=== PATIENT | female | born 1965 | race Caucasian/White ===

== ENCOUNTER 2017-10-06 22:03 | Inpatient (IN) ==
[2017-10-06] MEDS ORDERED: PROCHLORPERAZINE 10 MG/2 ML INJECTION IVP ONE (22:59)
[2017-10-06] MEDS ORDERED: KETOROLAC 30 MG/ML INJECTION IVP ONE (22:59)
[2017-10-06] MEDS ORDERED: NS 1,000 ML IV ONE (22:59)
--- NOTE | 2017-10-06 23:04 | Emergency Department Report ---
Female Urogenital HPI - General Chief complaint: Urogenital-Female Stated complaint: UTI, backpain/fever Time Seen by Provider: 10/06/17 22:51 Source: patient Mode of arrival: ambulatory Limitations: no limitations - History of Present Illness HPI Narrative: 4 days ago the patient began having fevers, abdominal pain, right flank pain and dysuria. Patient was found to have a urinary tract infection, placed on Levaquin and Zofran, but her symptoms have not improved. Patient's fever has now gotten up to 103 at home, and patient continues to be tachycardic. She was instructed by her primary care physician, Dr. Simons to come to the ER for evaluation. Patient has also had similar symptoms of flank pain like this with her kidney stones, but has never had a urinary tract infection with a kidney stone. In reviewing the patient's past medical records and studies, she's never passed a kidney stone, but did have a CT scan that showed mild hydroureter but no evidence of kidney stones. - Related Data Home Medications Medication Instructions Recorded Confirmed Insulin Aspart [NovoLOG] 25 unit SQ TID #0 vial 12/15/15 10/06/17 Insulin Glargine,Hum.rec.anlog 30 unit SQ HS #0 vial 12/15/15 10/06/17 [Lantus] Atorvastatin [Lipitor] 1 tab PO HS 10/06/17 10/06/17 Lisinopril [Zestril] 20 mg PO DAILY 10/06/17 10/06/17 Metformin [Glucophage] 500 mg PO BID 10/06/17 10/06/17 Allergies Allergy/AdvReac Type Severity Reaction Status Date / Time ceftriaxone Allergy Severe HIVES AND Verified 12/15/15 07:13 RESPIRATORY FAILURE Sulfa (Sulfonamide Allergy Intermediate HIVES Verified 12/15/15 07:13 Antibiotics) amoxicillin Allergy Mild Verified 12/15/15 07:13 cefaclor Allergy Mild Verified 12/15/15 07:13 clavulanic acid Allergy Mild Verified 12/15/15 07:13 morphine Allergy Unknown Verified 12/15/15 07:13 Review of Systems All systems: reviewed and negative except as stated PFSH Patient Stated Medical History Hypertension Yes Diabetes Mellitus Type 1 Yes Hx Incontinence Yes Now No Kidney stones Urine or tract infections hypothyroidism depression, suicide attempt Surgical History: appendix,. neck. ,. tubal ligation - Social History Smoking status: Never smoker Substance use type: does not use Alcohol intake frequency: does not drink Physical Exam - Limitations Limitations: no limitations - General General appearance: alert, in distress (patient appears in moderate distress secondary to pain) - Normal Exams: Head:: Normocephalic without trauma Eyes:: Pupils are PERRLA w/ EOMI, No scleral icterus, irritation, or foreign bodies noted ENMT:: No facial trauma, nasal exudates, pharyngeal erythema, or exudates are noted Neck:: Full range of motion, without adenopathy, JVD, bruits or thyromegaly Chest/Respirations:: Clear all mccrary, with good airflow, and symmetry bilaterally Cardiovascular:: Regular rate and rhythm, without murmur or gallop, Pulses 2+ all extremities, capillary refill, <2 seconds all extremities Lymphatic:: No lymphadenopathy, or lymphedema noted Musculoskeletal:: No tenderness, or deformity noted, good range of motion, all extremities Integumentary:: No rashes, hives, or bruising noted, hair and nails, without abnormality Neurological:: Patient is alert, and oriented, cranial nerves, motor/sensory/ cerebellar, exams w/o gross deficits, to observation Psychiatric:: Patient exhibits, appropriate attention, emotion and affect - Abdominal Exam Abdominal exam: Present: soft, tenderness (her diffuse periumbilical tenderness , with significant right flank and right CVA tenderness), guarding (right CVA only), normal bowel sounds. Absent: distention, Singh's sign, Rovsing's sign, tenderness at McBurney's Point, mass, bruit, pulsatile mass, hernia, scar Course Vital Signs Temperature 102.3 F H 10/06/17 22:16 Pulse Rate 115 H 10/06/17 22:16 Respiratory Rate 20 10/06/17 22:16 Blood Pressure 122/59 10/06/17 22:16 Pulse Oximetry 91 10/06/17 22:16 Temperature 98.8 F 10/07/17 00:45 Pulse Rate 112 H 10/07/17 00:45 Respiratory Rate 20 10/07/17 00:45 Blood Pressure 139/72 10/07/17 00:45 Pulse Oximetry 91 10/07/17 00:45 Urogenital-Female - MDM Narrative Medical decision making narrative: Patient is given Toradol and Compazine, with 1 L normal saline IV fluid bolus UA - 3+ glucose only CBC - white blood cells low at 2.4, no significant shift CMP/L - minor abnormalities, consistent with IDDM Lactate - elevated at 2.6 After 1 L normal saline patient continues to be tachycardic at 112, blood pressure 139/72, O2 saturations are normal but slightly low at 91% on room air. Patient states she would like to go home, but I urged her to stay since she appears to have urinary tract infection with pyelonephritis and possible sepsis. Patient is given a second liter of normal saline, aztreonam 1 g IV is ordered for the IV in addition. Case is discussed with Dr. Long, patient meets sepsis criteria, will be admitted for sepsis with UTI/pyelonephritis - Lab Data Result diagrams: 10/06/17 23:11 10/06/17 23:11 Lab Results 10/06/17 10/06/17 10/06/17 Range/Units 23:11 23:11 23:11 WBC 2.4 L (4.5-11.0) T/MM3 RBC 5.04 (4.00-5.20) M/MM3 Hgb 14.0 (12-16) GM/DL Hct 41.1 (36-46) % MCV 81.5 (80-100) UM3 MCH 27.8 (26-34) UUG MCHC 34.1 (31-37) GM/DL RDW Std Deviation 39.9 (36.9-50.2) FL Plt Count 126 L (130-400) T/MM3 MPV 11.1 (9.4-12.4) UM3 Immature Gran % (Auto) 0.0 (0.0-0.5) % Neut % (Auto) 49.8 (33-66) % Lymph % (Auto) 41.2 (23-45) % [place] % (Auto) 8.6 (0-9.0) % Eos % (Auto) 0.0 (0-4) % Baso % (Auto) 0.4 (0-2) % Neut # (Auto) 1.2 L (1.8-7.7) T/MM3 Lymph # (Auto) 1.0 (1-4.8) T/MM3 [place] # (Auto) 0.2 (0-0.8) T/MM3 Eos # (Auto) 0.0 (0-0.5) T/MM3 Baso # (Auto) 0.0 (0-0.2) T/MM3 Abs Immat Gran (auto) 0.00 (0.00-0.03) T/MM3 Turbidity < 20 (0-20) Sodium 140 (136-146) MEQ/L Potassium 3.5 L (3.6-5) MEQ/L Chloride 102 (98-107) MEQ/L Carbon Dioxide 23 (22-30) MEQ/L Anion Gap 15 (5-15) meq/L BUN 12.0 (7-17) MG/DL Creatinine 0.5 L (0.7-1.2) mg/dL Estimated Creat Clear 127 (>50) mL/min GFR Calculation 130 (>60) mL/min BUN/Creatinine Ratio 24 (6-26) RATIO Glucose 349 H (65-110) MG/DL Calculated Osmolality 283 H (261-280) MOSM/KG Calcium 9.3 (8.4-10.2) MG/DL Total Bilirubin 0.40 (0.20-1.30) MG/DL Conjugated Bilirubin 0.00 (0.00-0.30) mg/dL Unconjugated Bilirubin 0.50 (0.00-1.1) mg/dL Icterus Index < 2 (0-7) AST 47 H (14-36) U/L ALT 32 (1-35) U/L Alkaline Phosphatase 87 (38-126) U/L Total Protein 7.7 (6.3-8.2) g/dL Albumin 4.4 (3.5-5.0) g/dL Globulin 3.3 (2.4-3.6) G/DL Albumin/Globulin Ratio 1.3 (1.1-2.2) RATIO Lipase 256 (23-300) U/L Plasma Lactate 2.6 H (0.6-2.2) MMOL/L Specimen Hemolysis 32 H (0-25) Ur Collection Type Urine, void-cc/notcc Urine Color Yellow (YELLOW) Urine Clarity Clear Urine pH 5.5 (5.0-8.0) Ur Specific [place] 1.015 (1.015-1.025) Urine Protein Negative (NEGATIVE) Urine Glucose (UA) 3+ A (NEGATIVE) Urine Ketones Negative (NEGATIVE) Urine Occult Blood Negative (NEGATIVE) Urine Nitrate Negative (NEGATIVE) Urine Bilirubin Negative (NEGATIVE) Urine Urobilinogen 0.2 (NORMAL) EU/DL Ur Leukocyte Esterase Negative (NEGATIVE) Urinalysis Comment Microscopic not ind. Disposition Clinical Impression: Pyelonephritis Sepsis Qualifiers: Sepsis type: sepsis due to unspecified organism Qualified Code(s): A41.9 - Sepsis, unspecified organism Disposition: [address] [facility] [place] Acute Care Condition: Improved Prescriptions: Continue Insulin Aspart [NovoLOG] 25 unit SQ TID #0 vial Lisinopril [Zestril] 20 mg PO DAILY Metformin [Glucophage] 500 mg PO BID Insulin Glargine,Hum.rec.anlog [Lantus] 30 unit SQ HS #0 vial Atorvastatin [Lipitor] 1 tab PO HS Referrals: Carrie Warren DO [Primary Care Provider] - - Seen By: physician
[2017-10-06] MEDS: SALINE FLUSH 10ml SYRINGE IVF PRN (23:26)
[2017-10-07] MEDS ORDERED: NS 1,000 ML IV ONE (00:52)
[2017-10-07] MEDS ORDERED: AZTREONAM 1 G in NS 100 ML IV ONE (01:11)
[2017-10-07] MEDS ORDERED: INSULIN REGULAR, HUMAN 100 UNIT/ML INJECTION SQ PRN (03:09)
[2017-10-07] MEDS ORDERED: AZTREONAM 1 G in NS 100 ML IV SCH (03:09)
[2017-10-07] MEDS ORDERED: IBUPROFEN 600 MG TABLET PO PRN (03:09)
[2017-10-07] MEDS ORDERED: SENNA + DOCUSATE TABLET PO PRN (03:09)
[2017-10-07] MEDS ORDERED: HYDROCODONE/APAP 5mg/325mg TABLET PO PRN (03:09)
[2017-10-07] MEDS ORDERED: MORPHINE SULFATE 2mg INJECTION IVP PRN (03:09)
[2017-10-07] MEDS ORDERED: ACETAMINOPHEN 325 MG TABLET PO PRN (03:09)
[2017-10-07] MEDS ORDERED: ONDANSETRON 4 MG/2 ML INJECTION IVP PRN (03:09)
[2017-10-07] MEDS ORDERED: ZOLPIDEM 5 MG TABLET PO ONE (03:22)
--- NOTE | 2017-10-07 03:22 | History & Physical Report ---
History of Present Illness Date: 10/07/17 Chief complaint: Flank Pain, fever, nausea HPI: Sol is a pleasant 52F pt of Dr[address] Lisa who presented to the ER with worsening complaints of L flank pain, nausea, vomiting, and fevers. she has also had some diarrhea, which she states is not severe. she was started on levaquin and her primary provider's office on wednesday for a urinary tract infection, culture on that is still pending. in the emergency department, she met sepsis criteria with a fever, tachycardia , and elevated lactic acid level as well as a blood sugar of 349. her white blood cell count was found to be relatively low at 2.4. she was given a liter bolus of iv fluids, a dose of aztreonam with attention to her several drug allergies and already being on levaquin, and she is admitted for further evaluation and management. Review of Systems All systems PM: 10-point ROS was reviewed, no additional remarkable complaints except - Constitutional Constitutional: Present: as per HPI, anorexia, chills, fever(s) - EENMT Eyes: Absent: blurry vision, change in vision - Cardiovascular Cardiovascular: Absent: chest pain, palpitations, syncope, dyspnea on exertion, edema - Gastrointestinal Gastrointestinal: Present: abdominal pain, change in bowel habits, nausea, vomiting. Absent: melena Past Medical History Medical History Updates: essential hypertension. poorly controlled diabetes mellitus on insulin therapy. depression. past history of hypothyroidism, she states 'not anymore' Surgical History: appendix,. neck. ,. tubal ligation Family History Updates: her mother had diabetes and hypertension and of complications of lung cancer. her father had coronary artery disease and also from complications of lung cancer Family History: As Above - Social History Smoking status: Never smoker Alcohol intake frequency: does not drink Household members: spouse Medications Home Medications Medication Instructions Recorded Confirmed Type Insulin Aspart [NovoLOG] 25 unit SQ TID #0 vial 12/15/15 10/06/17 History Insulin Glargine,Hum.rec.anlog 30 unit SQ HS #0 vial 12/15/15 10/06/17 History [Lantus] Atorvastatin [Lipitor] 1 tab PO HS 10/06/17 10/06/17 History Lisinopril [Zestril] 20 mg PO DAILY 10/06/17 10/06/17 History Metformin [Glucophage] 500 mg PO BID 10/06/17 10/06/17 History Allergies Allergy/AdvReac Type Severity Reaction Status Date / Time ceftriaxone Allergy Severe HIVES AND Verified 12/15/15 07:13 RESPIRATORY FAILURE Sulfa (Sulfonamide Allergy Intermediate HIVES Verified 12/15/15 07:13 Antibiotics) amoxicillin Allergy Mild Verified 12/15/15 07:13 cefaclor Allergy Mild Verified 12/15/15 07:13 clavulanic acid Allergy Mild Verified 12/15/15 07:13 morphine Allergy Unknown Verified 12/15/15 07:13 Exam Vital Signs: Temperature 99.1 F 10/07/17 02:32 Pulse Rate 98 10/07/17 02:32 Respiratory Rate 18 10/07/17 02:32 Blood Pressure 143/72 H 10/07/17 02:32 Pulse Oximetry 94 10/07/17 02:32 Height/Weight/BMI: Height 4 ft 10 in Weight 82.554 kg - Constitutional Present: no acute distress, well nourished - Routine HEENT Exam Eye: Present: EOMI, PERRL - Routine Neck Exam Present: supple, full ROM. Absent: JVD - Routine Respiratory Exam Present: CTA bilaterally. Absent: accessory muscle use - Routine Cardiovascular Exam Present: RRR ( borderline tachycardia, rate currently in the 90s down from 120 in the er) - Routine Abdominal Exam Present: soft, normoactive bowel sounds, tenderness ( diffuse in lower quadrants at this time). Absent: rebound - Routine Extremities Exam Present: pulses intact, normal capillary refill. Absent: cyanosis, clubbing, edema - Routine Skin Exam Present: intact, warm, normal turgor. Absent: pallor, jaundice, rash - Routine Neurological Exam Present: alert, oriented X3, CN II-XII intact. Absent: sensory deficit, motor deficit, altered mental status - Routine Psychiatric Exam Present: normal affect, normal thought process - Additional findings Additional findings: examination performed using telemedicine equipment with the assistance of the bedside nurse Results - Labs CBC & Chem 7: 10/06/17 23:11 10/06/17 23:11 Microbiology Results: Microbiology 10/06/17 23:11 Peripheral/Iv Start Gram Stain - Final Not performed 10/06/17 23:11 Peripheral/Iv Start Gram Stain - Final Not performed Assessment and Plan (1) Diabetes mellitus type 2, uncontrolled Current visit: Yes Status: Acute (2) Essential hypertension Current visit: Yes Status: Acute (3) Pyelonephritis Current visit: Yes Status: Acute (4) Sepsis Current visit: Yes Status: Acute Assessment and Plan: sol is admitted with evidence of sepsis from a likely urinary source. as above, her urine culture should at least show preliminary results by this morning, currently pending at her primary care physician's office. she has been given intravenous fluids and intravenous aztreonam, both of which we will continue. repeat lactate level is pending. we will provide additional insulin with before meals and at bedtime accu-cheks to attain euglycemia. if her pain and nausea persist, would have a low threshold for ct scan of the abdomen and pelvis to rule out nephrolithiasis. her urinalysis this morning appears to show evidence of adequate treatment for her urinary tract infection, thus her fever and sirs could otherwise be due to inflammation associated with a partially treated pyelonephritis, other pathologies will need to be considered if she does not continue to enjoy improvement as she has thus far after triage treatment. will provide further symptomatic supportive and diagnostic cares as the current workup, or as changes in her clinical scenario, indicate. the plan of care was discussed with the patient at the time of my evaluation and she expressed understanding and a desire to proceed. DVT Prophylaxis: SCD's Resuscitation Status: Full Code - Physician Narrative Physician: Hola Castillo MD Narrative: Date: 10/07/17 Time: 315 Dr. Long's note reviewed. Mrs. Marcus interviewed and examined at bedside. CC: Fever, nausea and right flank pain HPI: A pleasant 52-year-old female patient presented to the emergency room with complaints of fever, chills, increased sweating, nausea, vomiting, poor appetite and right flank pain. WBC count was low at 2.4, patient was tachycardic and slightly hypoxic with oxygen saturation 91% on room air. With these findings, hospitalist service was contacted and patient admitted to medical floor with sepsis and concern for underlying pyelonephritis. Imaging not performed as of the time of interview. Patient reports she was in usual state of health until 5 days ago when she started noticing fever associated with chills, increased sweating and poor appetite. Then for the past 4 days, patient also noticed generalized body aches, right-sided flank pain. Patient reports 2 day history of diarrhea and for the past day prior to admission, patient noticed intractable nausea and vomiting food particles in addition to the aforementioned symptoms. Patient has history of multiple episodes of kidney stones in the past, has had multiple cystoscopies and used to follow up with a urologist although reports she has not seen a urologist for many years now. Symptoms of abdominal pain, flank pain have "improved by 80%" at the time of evaluation at bedside. PH: Hypertension, insulin-dependent type 2 diabetes mellitus, hyperlipidemia, atypical chest pain/angina for which patient follows up with Dr. Johnson. SH: Appendectomy, bilateral tubal ligation, 1, cervical spine surgery for multiple bulging disks, multiple cystoscopies. Social: Patient , lives with her . No reported history of tobacco , alcohol or street drug use. Patient does have significant history of secondhand tobacco exposure, both patient's parents had history of significant tobacco use. FH: Patient's mother and father had a history of diabetes mellitus and lung cancer. Patient's father also had a history of coronary artery disease. ROS: 10 point review negative except - positive fever, positive chills, positive increased sweating, positive abdominal pain, positive right-sided flank pain, positive nausea, positive vomiting, positive body aches, positive diarrhea, positive decreased appetite EXAM: General: Alert, awake, oriented x 3. In moderate distress. Head: Pupils equal, round, reactive to light and accommodation. Extraocular movements intact. Neck: No elevation in JVP. No pharyngeal erythema noted. Chest: The patient does not use accessory muscles for breathing. Lungs: Breath sounds audible on auscultation bilateral lung mccrary. No wheezing , no rhonchi, no crepitations, no crackles. No pleural rub. CVS: S1, S2 heard on auscultation. Tachycardic. Normal rhythm. No murmur, no S3 /S4 gallops. Abdomen: Soft, obese, tenderness to palpation noted more in the epigastrium, right upper quadrant, right lower quadrant. Positive guarding. No rebound. Bowel sounds appreciated on auscultation. : Positive right-sided flank tenderness. No suprapubic distention or tenderness. Skin: No rashes, no induration, no erythema. Capillary refill less than 4 seconds. Extremities: No evidence of pedal edema bilateral lower extremities. No calf tenderness bilaterally. Palpable dorsalis pedis and posterior tibial pulses bilateral lower extremities. DATA: Laboratory Tests 10/06/17 10/06/17 10/07/17 23:11 23:11 05:15 Glucose 349 H Calculated Osmolality 283 H Calcium 9.3 Total Bilirubin 0.40 Conjugated Bilirubin 0.00 Unconjugated Bilirubin 0.50 AST 47 H ALT 32 Alkaline Phosphatase 87 Total Protein 7.7 Albumin 4.4 Globulin 3.3 Albumin/Globulin Ratio 1.3 Lipase 256 Plasma Lactate 2.6 H 1.0 Ur Collection Type Urine, void-cc/notcc Urine Color Yellow Urine Clarity Clear Urine pH 5.5 Ur Specific [place] 1.015 Urine Protein Negative Urine Glucose (UA) 3+ A Urine Ketones Negative Urine Occult Blood Negative Urine Nitrate Negative Urine Bilirubin Negative Urine Urobilinogen 0.2 Ur Leukocyte Esterase Negative Assessment: Sepsis with findings concerning for right-sided pyelonephritis. Insulin-dependent type 2 diabetes mellitus. Hypertension. Hyperlipidemia. Recurrent angina/atypical chest pain. History of renal stones. Obesity, BMI 38. Plan: Will order CT scan of abdomen and pelvis renal stone study. Patient will be placed on clear liquid diet following CT scan. We will continue antibiotic coverage with IV aztreonam 1 g every 8 hours. Lactic acid 2.6 on admission which is then dropped to 1.0 this morning. Patient received 2 L IV normal saline bolus and currently on IV fluids normal saline at 130 mL per hour. We will decrease the rate of IV fluids to 100 mL per hour. Hemoglobin A1c will be requested for tomorrow. We will continue home regimen Lantus 30 units subcutaneous at bedtime and NovoLog 25 units subcutaneous 3 times a day before meals. In addition, patient will be on 28 units of insulin sliding scale with fingerstick blood sugars before meals and at bedtime. Home medication metformin held for now. Patient's blood pressure [id number] since admission. Will continue home medication lisinopril 20 mg by mouth daily. Continue home medications atorvastatin 20 mg by mouth at bedtime. IV morphine 12 milligrams every 2 hours as needed for moderate to severe pain. We will recheck CBC, BMP tomorrow. Hospital Course Summary Disclaimer: The visit summary below is not to be considered part of the above Progress Note.
[2017-10-07] MEDS: NS 1,000 ML IV SCH ×2 (03:28→13:38)
[2017-10-07] MEDS: LISINOPRIL 20 MG TABLET PO SCH (08:41)
[2017-10-07] MEDS: ENOXAPARIN 40 MG/0.4 ML INJECTION SQ SCH (08:42)
[2017-10-07] MEDS ORDERED: INSULIN ASPART 100unit/ml INJECTION SQ SCH (09:00)
[2017-10-07] MEDS: AZTREONAM 1 G in NS 100 ML IV SCH ×2 (10:06→18:07)
[2017-10-07] MEDS: INSULIN ASPART 100unit/ml INJECTION SQ PRN (10:38)
[2017-10-07] MEDS ORDERED: NS 1,000 ML IV SCH (12:15)
--- NOTE | 2017-10-07 13:11 | CT Scan Report ---
Indication: right-sided flank pain, concern for pyelonephritis PROCEDURE: CT renal wo con ([facility]iera): Encounter: Initial Comparison: Renal CT dated April 21, 2010 Technique: Axial CT images were performed through the abdomen and pelvis without intravenous contrast. Coronal and sagittal two-dimensional reformats. Automated Exposure Control and Iterative Reconstruction dose reducing techniques were utilized. Findings: The lung bases are clear. Fatty infiltration of the mildly enlarged liver. No contour deforming liver masses. The gallbladder is normal. The spleen, pancreas and adrenal glands are within normal limits. The left kidney is normal. No left-sided renal or ureteral stones. Bladder is normal uterus and ovaries are normal. No free fluid. No evidence of a bowel obstruction. Minimal sigmoid diverticulosis without acute diverticulitis. The right kidney is unremarkable. No stone disease or perinephric inflammatory change. No right-sided renal or ureteral stones. Bone windows are within normal limits. Impression: 1. No acute disease process seen. No obvious evidence for pyelonephritis however sensitivity is limited without IV contrast. 2. Hepatic steatosis. .
[2017-10-07] MEDS: INSULIN ASPART 100unit/ml INJECTION SQ SCH ×2 (14:46→18:45)
[2017-10-07] MEDS: INSULIN GLARGINE 100unit/ml INJECTION SQ SCH (21:32)
[2017-10-07] MEDS: ATORVASTATIN 20 MG TABLET PO SCH (21:32)
[2017-10-07] MEDS: ZOLPIDEM 10 MG TABLET PO PRN (22:55)
[2017-10-08] MEDS: LISINOPRIL 20 MG TABLET PO SCH (08:58)
[2017-10-08] MEDS: INSULIN ASPART 100unit/ml INJECTION SQ SCH ×3 (08:59→17:55)
[2017-10-08] MEDS: AZTREONAM 1 G in NS 100 ML IV SCH ×3 (08:59→17:53)
[2017-10-08] MEDS: ENOXAPARIN 40 MG/0.4 ML INJECTION SQ SCH (10:50)
--- NOTE | 2017-10-08 11:01 | Progress Note ---
- Date 10/08/17 Subjective: Patient resting in bed at the time of interview. Reports subjective complaints of right-sided flank pain has improved. CT scan renal stone study performed yesterday did not show any evidence of nephrolithiasis or pyelonephritis. Complains of nausea, vomiting, abdominal pain has resolved. Patient tolerating oral intake without any recurrence of nausea or vomiting. Patient continues to have leukopenia, WBC count 2300 this morning when compared to 2400 yesterday. Serum potassium low at 3.0, will be replaced. Patient continues to have low- grade temperature spikes, 99.6F this morning. Urine culture showing early growth, complete culture and sensitivity results awaited. Blood cultures so far negative. Objective Vital signs: Temperature 99.6 F 10/08/17 07:42 Pulse Rate 92 10/08/17 07:42 Respiratory Rate 18 10/08/17 07:42 Blood Pressure 140/75 H 10/08/17 07:42 Pulse Oximetry 93 10/08/17 07:42 Height/Weight/BMI: Height 1.47 m Weight 84.2 kg - Additional findings Additional findings: General: Alert, awake, oriented x3. Not in acute distress. Head: Pupils equal, round, reactive to light and accommodation. Extraocular movements intact. Neck: No elevation in JVP. No pharyngeal erythema noted. Chest: The patient does not use accessory muscles for breathing. Lungs: Breath sounds audible on auscultation bilateral lung mccrary. No wheezing , no rhonchi, no crepitations, no crackles. No pleural rub. CVS: S1, S2 heard on auscultation. Normal rate and rhythm. No murmur, no S3/S4 gallops. Abdomen: Soft, obese, minimal epigastric, left lower quadrant tenderness to palpation. No guarding, no rebound. Bowel sounds appreciated on auscultation. : Patient does have some right-sided flank tenderness. No suprapubic tenderness or distention. Skin: No rashes, no induration, no erythema. Capillary refill less than 4 seconds. Extremities: Trace edema bilateral lower extremities. No calf tenderness bilaterally. Palpable dorsalis pedis and posterior tibial pulses bilateral lower extremities. Results - Labs CBC & Chem 7: 10/08/17 04:59 10/08/17 04:59 Microbiology Results: Microbiology 10/06/17 23:11 Peripheral/Iv Start Blood Culture - Preliminary No Growth After 1 Day 10/06/17 23:11 Peripheral/Iv Start Blood Culture - Preliminary No Growth After 1 Day 10/06/17 23:11 Urine, Voided (Cc/notcc) Urine Culture - Preliminary Early growth - Impressions CT scan renal stone study without contrast performed on 10/07/2017 Impression: 1. No acute disease process seen. No obvious evidence for pyelonephritis however sensitivity is limited without IV contrast. 2. Hepatic steatosis. Assessment and Plan (1) Diabetes mellitus type 2, uncontrolled Current visit: Yes Status: Chronic (2) Essential hypertension Current visit: Yes Status: Chronic (3) Pyelonephritis Current visit: Yes Status: Acute (4) Sepsis Current visit: Yes Status: Resolved Assessment and Plan: Assessment: Sepsis from UTI, resolved. Insulin-dependent type 2 diabetes mellitus. Hypertension. Hyperlipidemia. Recurrent angina/atypical chest pain. History of renal stones. Obesity, BMI 38. Plan: CT scan renal stone study without contrast does not show any evidence of nephrolithiasis or pyelonephritis. Patient will be continued on ADA 2000 kcal cardiac diet. We will continue antibiotic coverage with IV aztreonam 1 g every 8 hours. We will decrease the rate of IV fluids from 100 to 50 mL per hour. Hemoglobin A1c will be requested for tomorrow. We will continue home regimen Lantus 30 units subcutaneous at bedtime and NovoLog 25 units subcutaneous 3 times a day before meals. In addition, patient will be on 28 units of insulin sliding scale with fingerstick blood sugars before meals and at bedtime. Home medication metformin held for now. Blood pressure 140/75 this morning. Will continue home medication lisinopril 20 mg by mouth daily. Continue home medications atorvastatin 20 mg by mouth at bedtime. IV morphine 12 mg every 2 hours as needed for moderate to severe pain. We will recheck CBC, BMP tomorrow. DVT Prophylaxis: SCD's GI Prophylaxis: Protonix Resuscitation Status: Full Code - Physician Narrative Narrative: Date: 10/08/17 Time: 1058 Hospital Course Summary Disclaimer: The visit summary below is not to be considered part of the above Progress Note. Hospital Course: 10/07/[address] scan of abdomen and pelvis renal stone study. Patient will be placed on clear liquid diet following CT scan. We will continue antibiotic coverage with IV aztreonam 1 g every 8 hours. Lactic acid 2.6 on admission which is then dropped to 1.0 this morning. Patient received 2 L IV normal saline bolus and currently on IV fluids normal saline at 130 mL per hour. We will decrease the rate of IV fluids to 100 mL per hour. Hemoglobin A1c will be requested for tomorrow. We will continue home regimen Lantus 30 units subcutaneous at bedtime and NovoLog 25 units subcutaneous 3 times a day before meals. In addition, patient will be on 28 units of insulin sliding scale with fingerstick blood sugars before meals and at bedtime. Home medication metformin held for now. Patient's blood pressure [id number] since admission. Will continue home medication lisinopril 20 mg by mouth daily. Continue home medications atorvastatin 20 mg by mouth at bedtime. IV morphine 12 milligrams every 2 hours as needed for moderate to severe pain. We will recheck CBC, BMP tomorrow. 10/08/2017 CT scan renal stone study without contrast does not show any evidence of nephrolithiasis or pyelonephritis. Patient will be continued on ADA 2000 kcal cardiac diet. We will continue antibiotic coverage with IV aztreonam 1 g every 8 hours. We will decrease the rate of IV fluids from 100 to 50 mL per hour. Hemoglobin A1c will be requested for tomorrow. We will continue home regimen Lantus 30 units subcutaneous at bedtime and NovoLog 25 units subcutaneous 3 times a day before meals. In addition, patient will be on 28 units of insulin sliding scale with fingerstick blood sugars before meals and at bedtime. Home medication metformin held for now. Blood pressure 140/75 this morning. Will continue home medication lisinopril 20 mg by mouth daily. Continue home medications atorvastatin 20 mg by mouth at bedtime. IV morphine 12 mg every 2 hours as needed for moderate to severe pain.
[2017-10-08] MEDS: INSULIN ASPART 100unit/ml INJECTION SQ PRN (12:42)
[2017-10-08] MEDS: NS 1,000 ML IV SCH (12:43)
[2017-10-08] MEDS: ATORVASTATIN 20 MG TABLET PO SCH (20:44)
[2017-10-08] MEDS: SALINE FLUSH 10ml SYRINGE IVF PRN (20:44)
[2017-10-08] MEDS: ZOLPIDEM 10 MG TABLET PO PRN (20:44)
[2017-10-08] MEDS: INSULIN GLARGINE 100unit/ml INJECTION SQ SCH (20:44)
[2017-10-09] MEDS: AZTREONAM 1 G in NS 100 ML IV SCH ×3 (02:05→10:22)
[2017-10-09] MEDS ORDERED: PANTOPRAZOLE 40 MG TABLET PO SCH (06:30)
[2017-10-09 09:03] VITALS: O2SAT 98
[2017-10-09] MEDS: NS 1,000 ML IV SCH (10:02)
[2017-10-09] MEDS: INSULIN ASPART 100unit/ml INJECTION SQ SCH ×2 (10:02→12:31)
[2017-10-09] MEDS: ENOXAPARIN 40 MG/0.4 ML INJECTION SQ SCH (10:03)
[2017-10-09] MEDS: LISINOPRIL 20 MG TABLET PO SCH (10:03)
[2017-10-09 12:04] VITALS: BP 158/80; PULSE 84; RESP 14; TEMP 97.8
--- NOTE | 2017-10-09 14:35 | Discharge Summary ---
Discharge Information Date of admission: 10/07/17 01:48 Anticipated date of discharge: 10/09/17 Attending Physician: Hola Castillo MD Primary care physician: Carrie Warren DO Consults: 10/08/17 04:25 Case Management Consult [CONS] Routine Reason For Exam: overnight oximetry - Discharge Diagnosis (1) Diabetes mellitus type 2, uncontrolled Status: Chronic (2) Essential hypertension Status: Chronic (3) Pyelonephritis Status: Suspected (4) Sepsis Status: Resolved Sepsis from UTI, resolved. Insulin-dependent type 2 diabetes mellitus. Hypertension. Hyperlipidemia. Recurrent angina/atypical chest pain. History of renal stones. Obesity, BMI 38. - Laboratory Labs: 10/09/17 13:19 10/09/17 13:19 Laboratory Tests 10/06/17 10/06/17 10/06/17 23:11 23:11 23:11 WBC 2.4 L RBC 5.04 Hgb 14.0 Hct 41.1 MCV 81.5 MCH 27.8 MCHC 34.1 Plt Count 126 L Sodium 140 Potassium 3.5 L Chloride 102 Carbon Dioxide 23 Anion Gap 15 BUN 12.0 Creatinine 0.5 L AST 47 H ALT 32 Alkaline Phosphatase 87 Total Protein 7.7 Albumin 4.4 Globulin 3.3 Plasma Lactate 2.6 H Specimen Hemolysis 32 H Ur Collection Type Urine, void-cc/notcc Urine Color Yellow Urine Clarity Clear Urine pH 5.5 Ur Specific [place] 1.015 Urine Protein Negative Urine Glucose (UA) 3+ A Urine Ketones Negative Urine Occult Blood Negative Urine Nitrate Negative Urine Bilirubin Negative Urine Urobilinogen 0.2 Ur Leukocyte Esterase Negative Urinalysis Comment Microscopic not ind. 10/07/17 10/08/17 10/08/17 05:15 04:59 04:59 WBC 2.3 L RBC 4.28 Hgb 11.7 L D Hct 35.5 L D MCV 82.9 MCH 27.3 MCHC 33.0 Plt Count 104 L Sodium 144 Potassium 3.0 L Chloride 111 H D Carbon Dioxide 25 Anion Gap 8 BUN 6.0 L D Creatinine 0.5 L AST ALT Alkaline Phosphatase Total Protein Albumin Globulin Plasma Lactate 1.0 Specimen Hemolysis Ur Collection Type Urine Color Urine Clarity Urine pH Ur Specific [place] Urine Protein Urine Glucose (UA) Urine Ketones Urine Occult Blood Urine Nitrate Urine Bilirubin Urine Urobilinogen Ur Leukocyte Esterase Urinalysis Comment - Microbiology Microbiology 10/06/17 23:11 Urine, Voided (Cc/notcc) Urine Culture - Preliminary Early growth 10/06/17 23:11 Peripheral/Iv Start Blood Culture - Preliminary No Growth After 2 Days 10/06/17 23:11 Peripheral/Iv Start Blood Culture - Preliminary No Growth After 2 Days - Radiology Radiology: CT scan without contrast renal study performed on 10/07/2017 Impression: 1. No acute disease process seen. No obvious evidence for pyelonephritis however sensitivity is limited without IV contrast. 2. Hepatic steatosis. History of Present Illness HPI: A pleasant 52-year-old female patient presented to the emergency room with complaints of fever, chills, increased sweating, nausea, vomiting, poor appetite and right flank pain. WBC count was low at 2.4, patient was tachycardic and slightly hypoxic with oxygen saturation 91% on room air. With these findings, hospitalist service was contacted and patient admitted to medical floor with sepsis and concern for underlying pyelonephritis. Imaging not performed as of the time of interview. Patient reports she was in usual state of health until 5 days ago when she started noticing fever associated with chills, increased sweating and poor appetite. Then for the past 4 days, patient also noticed generalized body aches, right-sided flank pain. Patient reports 2 day history of diarrhea and for the past day prior to admission, patient noticed intractable nausea and vomiting food particles in addition to the aforementioned symptoms. Patient has history of multiple episodes of kidney stones in the past, has had multiple cystoscopies and used to follow up with a urologist although reports she has not seen a urologist for many years now. Symptoms of abdominal pain, flank pain have "improved by 80%" at the time of evaluation at bedside. Objective Vital signs: Temperature 97.8 F 10/09/17 12:03 Pulse Rate 84 10/09/17 12:03 Respiratory Rate 14 10/09/17 12:03 Blood Pressure 158/80 H 10/09/17 12:03 Pulse Oximetry 98 10/09/17 12:03 Height/Weight/BMI: Height 1.47 m Weight 84.2 kg - Additional findings Additional findings: General: Alert, awake, oriented x3. Not in acute distress. Head: Pupils equal, round, reactive to light and accommodation. Extraocular movements intact. Neck: No elevation in JVP. No pharyngeal erythema noted. Chest: The patient does not use accessory muscles for breathing. Lungs: Breath sounds audible on auscultation bilateral lung mccrary. No wheezing , no rhonchi, no crepitations, no crackles. No pleural rub. CVS: S1, S2 heard on auscultation. Normal rate and rhythm. No murmur, no S3/S4 gallops. Abdomen: Soft, obese, not distended, nontender. Bowel sounds appreciated on auscultation. : Patient does have some right-sided flank tenderness. No suprapubic tenderness or distention. Skin: No rashes, no induration, no erythema. Capillary refill less than 4 seconds. Extremities: Trace edema bilateral lower extremities. No calf tenderness bilaterally. Palpable dorsalis pedis and posterior tibial pulses bilateral lower extremities. Hospital Course This is a general summary of the patient's hospital course. For more details refer to the complete medical record. Hospital course: 10/07/[address] scan of abdomen and pelvis renal stone study. Patient will be placed on clear liquid diet following CT scan. We will continue antibiotic coverage with IV aztreonam 1 g every 8 hours. Lactic acid 2.6 on admission which is then dropped to 1.0 this morning. Patient received 2 L IV normal saline bolus and currently on IV fluids normal saline at 130 mL per hour. We will decrease the rate of IV fluids to 100 mL per hour. Hemoglobin A1c will be requested for tomorrow. We will continue home regimen Lantus 30 units subcutaneous at bedtime and NovoLog 25 units subcutaneous 3 times a day before meals. In addition, patient will be on 28 units of insulin sliding scale with fingerstick blood sugars before meals and at bedtime. Home medication metformin held for now. Patient's blood pressure [id number] since admission. Will continue home medication lisinopril 20 mg by mouth daily. Continue home medications atorvastatin 20 mg by mouth at bedtime. IV morphine 12 milligrams every 2 hours as needed for moderate to severe pain. We will recheck CBC, BMP tomorrow. 10/08/2017 CT scan renal stone study without contrast does not show any evidence of nephrolithiasis or pyelonephritis. Patient will be continued on ADA 2000 kcal cardiac diet. We will continue antibiotic coverage with IV aztreonam 1 g every 8 hours. We will decrease the rate of IV fluids from 100 to 50 mL per hour. Hemoglobin A1c will be requested for tomorrow. We will continue home regimen Lantus 30 units subcutaneous at bedtime and NovoLog 25 units subcutaneous 3 times a day before meals. In addition, patient will be on 28 units of insulin sliding scale with fingerstick blood sugars before meals and at bedtime. Home medication metformin held for now. Blood pressure 140/75 this morning. Will continue home medication lisinopril 20 mg by mouth daily. Continue home medications atorvastatin 20 mg by mouth at bedtime. IV morphine 12 mg every 2 hours as needed for moderate to severe pain. 10/09/2017-discharge Patient resting in bed at the time of interview. Afebrile for more than last 24 hours. Blood culture 2 negative at the time of discharge. Urine culture growing early growth, sensitivity unavailable at the time of discharge. Discussed with patient about waiting for sensitivity, patient states she is feeling better and would like to be discharged home. Patient will be discharged on a 1 week course of Levaquin 750 mg daily. We will also provided oral potassium chloride 20 mEq by mouth daily for the next 5 days. Patient advised to follow-up with PCP next week to follow-up on sensitivity results from urine culture and also to recheck potassium levels. Time spent with patient: discharge greater than 30 minutes Resuscitation Status: Full Code Discharge Plan - Discharge Disposition Discharge Date: 10/09/17 Disposition: 01 Discharged Home, Self-Care *Condition: Improved Reason For Visit (Visit label in EMR): abdominal pain, sepsis - Discharge Medications *Discharge Medications: New Pantoprazole Tab [Protonix Tab] 40 mg PO ACB #10 tab Levofloxacin [Levaquin] 750 mg PO DAILY #7 tab Potassium Chloride 20 meq PO DAILY #5 tab.er.prt Continue Insulin Aspart [NovoLOG] 32 unit SQ TID #0 vial Lisinopril [Zestril] 20 mg PO DAILY Metformin [Glucophage] 500 mg PO BID Isosorbide Mononitrate ER [Imdur] 30 mg PO DAILY Insulin Glargine,Hum.rec.anlog [Lantus] 42 unit SQ HS #0 vial Atorvastatin [Lipitor] 1 tab PO HS - Discharge Packet/Instructions *Diet: ADA 2000 kcal, low salt, low cholesterol diet. *Activity: As tolerated. Reasonable activity for weight loss. *Pain Management/Treatment: Tylenol 500 mg by mouth every 6 hours as needed for pain or fever. *Wound Care: Not applicable *Expected Signs/Symptoms: Continued symptomatic improvement. *Notify Physician if: Fever, chills, increased shortness of breath, intractable nausea, vomiting, abdominal pain, chest pain, palpitations, dizziness, blurred vision, diarrhea, fatigue, weakness, flank pain, dysuria, black tarry stools, bright red blood per rectum or any other concerning findings. *During Business Hours Contact: Your PCP, Dr. Warren *After Business Hours Contact: Call [facility] at [phone] and ask that the on-call physician be paged *Pending Lab/Results: Follow up w/your PCP (final culture results, repeat potassium level) - Referrals/Follow Up *Referrals/Follow Up: Carrie Warren DO [Primary Care Provider] - 1 Week - Patient Handouts - Dismissal Complete Discharge Instructions are:: Complete Physician Narrative - Narrative Attestation Narrative: Date: 10/09/17 Time: 1998
== END 2017-10-09 15:40 | disposition home or self-care (01) | DRG 872 ==
LOC: ED 22:03 → EDHOLD 10-07 01:48 → MED 10-07 02:27
PROVIDERS: ADMIT Internal Medicine; ATTEND Internal Medicine